=== PATIENT | female | born 1995 | race Caucasian/White ===

== ENCOUNTER 2018-12-01 14:23 | Emergency (ER) | payer OTHER ==
[2018-12-01 14:48] VITALS: BP 119/78
--- NOTE | 2018-12-01 14:52 | ER Document Report ---
ED Medical Screen (RME) - General Chief Complaint: Jaw Pain Stated Complaint: JAW PAIN Time Seen by Provider: 12/01/18 14:48 Mode of Arrival: Ambulatory Information source: Patient Notes: 22-year-old female presents to ED for complaint of pain on both sides of her jaw. She states she has to go to a oral facial specialist because she has osteoarthritis that is affecting her jaw joints. She states she has an appointment next month with [facility]. She states she just got out of the [place] in October and this is the first appointment she has had where she could go ahead continue getting her hydrocodone that she has been taken for her pain. She is alert oriented respirations regular and unlabored speaking in full sentences. I have spoken with her concerning the chronic pain policy. She would like to see someone to see if they could give her some pain medicine. Last menstrual cycle November 01 I have greeted and performed a rapid initial assessment of this patient. A comprehensive ED assessment and evaluation of the patient, analysis of test results and completion of medical decision making process will be conducted by an additional ED providers. Physical Exam - Vital signs Vitals: Temp Pulse Resp BP Pulse Ox 98.3 F 85 18 119/78 100 12/01/18 14:47 12/01/18 14:47 12/01/18 14:47 12/01/18 14:47 12/01/18 14:47 Course - Vital Signs Vital signs: Temp Pulse Resp BP Pulse Ox 98.3 F 85 18 119/78 100 12/01/18 14:47 12/01/18 14:47 12/01/18 14:47 12/01/18 14:47 12/01/18 14:47
[2018-12-01] MEDS ORDERED: HYDROCODONE/ACETAMINOPHEN 5-325 MG (6 TAB/ER DISP) PO PRN (15:51)
--- NOTE | 2018-12-01 15:51 | ER Document Report ---
HPI - HPI Patient complains to provider of: Jaw pain Time Seen by Provider: 12/01/18 14:48 Onset: Other Onset/Duration: Persistent Severity: Severe Pain Level: 4 Context: This 22-year-old female with history of osteoarthritis to her jaw presents emergency department with complaints of jaw pain. She reports she recently was medically retired from the [employer]. She was stationed up from [place]. She came down to [place] because her is stationed here. She is waiting to be treated by [facility] for a jaw replacement, she is also waiting for pain management referral. Patient is here for pain medication. Patient is tearful reports it hurts to chew or open her mouth. Denies fever vomiting diarrhea. Associated Symptoms: None Exacerbated by: Movement, Food Relieved by: Denies Similar symptoms previously: Yes Recently seen / treated by doctor: Yes Past Medical History - General Information source: Patient Last Menstrual Period: 11/01/18 - Social History Smoking Status: Never Smoker Chew tobacco use (# tins/day): No Frequency of alcohol use: None Drug Abuse: None Lives with: Family Family History: None Patient has suicidal ideation: No Patient has homicidal ideation: No - Past Medical History Cardiac Medical History: Reports: Other - pots Musculoskeletal Medical History: Reports Hx Arthritis Surgical Hx: Negative Vertical Provider Document - CONSTITUTIONAL Agree With Documented VS: Yes Exam Limitations: No Limitations General Appearance: WD/WN, No Apparent Distress - INFECTION CONTROL TRAVEL OUTSIDE OF THE [place] IN LAST 30 DAYS: No - HEENT HEENT: Atraumatic, Normocephalic. negative: Conjuctival Injection Notes: c/o bilateral jaw pain, no erythema/swelling, opens mouth slowly, good airway - NECK Neck: Supple - RESPIRATORY Respiratory: No Respiratory Distress - CARDIOVASCULAR Cardiovascular: Regular Rate - MUSCULOSKELETAL/EXTREMETIES Musculoskeletal/Extremeties: GERALD LIU - NEURO Level of Consciousness: Awake, Alert, Appropriate - DERM Integumentary: Warm, Dry Course - Re-evaluation Re-evalutation: 12/01/18 15:55 This 22-year-old female presents with jaw pain. Reports history of osteoar thritis. Reports she was medically discharged from the [employer] due to this and is waiting for he placement at [facility] and also waiting for referral for pain management. Patient is tearful. Patient requesting pain medication. She was instructed on chronic pain. She was instructed on the importance of follow-up with the primary care provider pain management for managing her pain. Patient reports she just moved here from [place]. She has not established herself with pain management. She is seen the orthopedic once [place] [facility]. Patient seems uncomfortable will prescribe her 6 pack of [place] dispensed here. She was also instructed to follow-up for further pain management. She verbalized understanding all instructions. Dictation of this chart was performed using voice recognition software; therefore, there may be some unintended grammatical errors. - Vital Signs Vital signs: Temp Pulse Resp BP Pulse Ox 98.3 F 85 18 119/78 100 12/01/18 14:47 12/01/18 14:47 12/01/18 14:47 12/01/18 14:47 12/01/18 14:47 Discharge - Discharge Clinical Impression: Jaw pain Condition: Stable Disposition: HOME, SELF-CARE Instructions: Oral Narcotic Medication ([facility]), Osteoarthritis ([facility]), Pain Management Additional Instructions: *You have been evaluated for chronic jaw pain, osteoarthritis *Take medications as prescribed *Follow up with pain management and [facility] as scheduled *Return to ED for worsening condition, changes, needs
== END 2018-12-01 16:03 | disposition home or self-care (01) ==
LOC: ER 14:23
DX: R68.84 Jaw pain (principal)
CPT/HCPCS: 99283